=== PATIENT | male | born 1995 | race Caucasian/White ===

== ENCOUNTER 2023-11-16 10:44 | Emergency (ER) | payer MEDICAID ==
[~2023-11-16] VITALS: Ht 172.7 cm; Wt 64.0 kg
[2023-11-16 10:50] VITALS: TEMP 98; O2SAT 96
[2023-11-16 11:15] VITALS: BP 135/78; PULSE 87; RESP 18
[2023-11-16] MEDS: HYDROCODONE/ACETAMINOPHEN 5/325MG TABLET PO ONE ×2 (11:15→13:58)
[2023-11-16] MEDS: KETOROLAC 60MG/2ML VIAL IM ONE (13:58)
[2023-11-16] MEDS ORDERED: IBUP-2028 MT (15:21)
[2023-11-16] MEDS ORDERED: ACET-2708 MT (15:21)
== END 2023-11-16 15:51 | disposition home or self-care (01) ==
LOC: ER 10:44
DX: S42.001A Fracture of unspecified part of right clavicle, initial encounter for closed fracture (principal); W18.30XA Fall on same level, unspecified, initial encounter; Y93.89 Activity, other specified; Y92.89 Other specified places as the place of occurrence of the external cause; Y99.8 Other external cause status
CPT/HCPCS: 99284; 71101; 73000; 73030; 96372; J1885